=== PATIENT | male | born 1955 | race Caucasian/White ===

== ENCOUNTER 2017-12-12 09:51 | Emergency (ER) | payer BC ==
[~2017-12-12] VITALS: Ht 175.3 cm; Wt 71.8 kg
[~2017-12-12 09:51] MED LIST: ASPIRIN 81M81 MG/TA2 PO; FISH OIL CONC1000 MG PO; GLUCOSAMINE/CHONDROI PO; LEVITRA PO; MVI; TYLENOL 325MG325 MG PO
[2017-12-12 10:08] VITALS: BP 152/79; TEMP 96.8
[2017-12-12] MEDS ORDERED: MULTI VITAMINS1 TAB PO (10:11)
[2017-12-12] MEDS ORDERED: PROBIOTIC FORMU1 CAP PO (10:11)
[2017-12-12 12:28] LABS: COLLECTION METHOD CLEAN CATCH
[2017-12-12 12:45] LABS: MUCOUS Present /lpf; PH 8 (5-8); SQUAMOUS EPITHELIAL 0-2 /hpf; URINE APPEARANCE Clear; URINE BACTERIA None Seen /hpf; URINE BILIRUBIN Negative (NEGATIVE); URINE BLOOD Negative (NEGATIVE); URINE COLOR Yellow; URINE GLUCOSE Negative (NEGATIVE); URINE KETONE Trace (NEGATIVE); URINE LEUKOCYTE ESTERASE Negative (NEGATIVE); URINE NITRATE Negative (NEGATIVE); URINE PROTEIN(semi-quant) Negative (NEGATIVE); URINE RBC 0-2 /hpf; URINE UROBILINOGEN Negative (NEGATIVE)
[2017-12-12] MEDS ORDERED: FLEXERIL 1010 MG/TAB PO (13:00)
[2017-12-12 13:05] VITALS: PULSE 60
== END 2017-12-12 13:06 | disposition home or self-care (01) ==
LOC: COL.ER 09:51
PROVIDERS: Nurse Practitioner
DX: M54.5 Low back pain (principal); Z90.89 Acquired absence of other organs; Z88.0 Allergy status to penicillin; Z79.82 Long term (current) use of aspirin; W00.0XXA Fall on same level due to ice and snow, initial encounter; Y92.009 Unspecified place in unspecified non-institutional (private) residence as the place of occurrence of the external cause
CPT/HCPCS: J1885; J2360

== ENCOUNTER → 2022-01-16 | Outpatient (CLI) | payer MEDICARE, OTHER ==
[~2022-01-16] MED LIST changes: +FLEXERIL 1010 MG/TAB PO; +MULTI VITAMINS1 TAB PO; +PROBIOTIC FORMU1 CAP PO
== END ==
LOC: COL.RAD 12:19
DX: E04.1 Nontoxic single thyroid nodule (principal)